=== PATIENT | female | born 1995 | race Caucasian/White ===

== ENCOUNTER 2020-10-06 06:06 | Inpatient (IN) ==
[2020-10-06] MEDS ORDERED: ONDANSETRON 4 MG/2 ML VIAL IV PRN (06:35)
[2020-10-06] MEDS ORDERED: BUTORPHANOL 2 MG/ML VIAL IV PRN (06:35)
[2020-10-06] MEDS ORDERED: MEPERIDINE 50 MG/1 ML VIAL IM PRN (06:35)
[2020-10-06 06:57] LABS: Basophils % 0.3 % (0.0-0.8); Eosinophils # 0.1 10*3/uL (0.0-0.87); Eosinophils % 0.7 % (0.00-10.9); Hematocrit 34.3 VOL% (35.7-47.0); Hemoglobin 11.4 GM/DL (12.0-16.0); Immature Granulocytes % 3.9 %; Lymphocytes # 2.6 10*3/uL (1.4-4.0); Mean Corpuscular HGB Conc 33.2 GM/DL (32-36); Mean Corpuscular Volume 87.3 FL (87-102); Mean Platelet Volume 10.3 FL (9.6-12.0); Monocytes % 8.4 % (1.7-12.7); Neutrophils % 69.7 % (38.7-73.9); Platelet Count 218 T/CUMM (130-400); Red Blood Count 3.93 MC/CUMM (3.8-5.5); Red Cell Distribution Width 14.9 % (9.3-17.3); White Blood Count 15.3 T/CUMM (4-12)
[2020-10-06 07:17] LABS: Band Neutrophils 2 % (0-10); Lymphocytes 15 % (20-55); Platelet Estimate Normal; Segmented Neutrophils 78 % (50-85); Total Cells Counted 100
[2020-10-06 07:35] LABS: Alanine Aminotransferase 18 U/L (13-56); Albumin 2.4 G/DL (3.4-5.0); Alkaline Phosphatase 202 U/L (45-117); Aspartate Amino Transferase 13 U/L (0-37); Bilirubin,Total < 0.39 MG/DL (0.20-1.00); Blood Urea Nitrogen 6 MG/DL (7-18); Calcium 8.8 MG/DL (8.5-10.1); Carbon Dioxide 21 MMOL/L (21-32); Estimated Glom Filtration Rate 176 ML/MIN; Glucose 91 MG/DL (74-106); Osmolality,Calculated 274.5 MOS/KG (273-304); Potassium 3.9 MMOL/L (3.5-5.1); Sodium 139 MMOL/L (136-145); Total Protein 6.8 G/DL (6.4-8.2)
[2020-10-06] MEDS ORDERED: MEPERIDINE 50 MG/1 ML VIAL IV PRN (22:21)
[2020-10-07] MEDS ORDERED: OXYTOCIN/LR 20 UNIT/1,000 ML BAG IV SCH (05:00)
[2020-10-07] MEDS ORDERED: PROMETHAZINE 25 MG/1 ML VIAL IM ONE (09:10)
[2020-10-07] MEDS ORDERED: diphenhydrAMINE 50 MG/1 ML VIAL IV PRN ×2 (09:10)
[2020-10-07] MEDS ORDERED: FAMOTIDINE 20 MG/2 ML VIAL IV ONE (09:10)
[2020-10-07] MEDS ORDERED: hydrOXYzine HCL 25 MG/1 ML VIAL IM PRN (09:10)
[2020-10-07] MEDS ORDERED: CITRIC ACID/SODIUM CITRATE 30 ML UDCUP PO ONE (09:10)
[2020-10-07] MEDS ORDERED: ONDANSETRON 4 MG/2 ML VIAL IV ONE (09:10)
[2020-10-07] MEDS ORDERED: ePHEDrine 50 MG/ML VIAL IV PRN (09:10)
[2020-10-07] MEDS ORDERED: NALOXONE 0.4 MG/ML VIAL IV PRN (09:10)
[2020-10-07] MEDS: LACTATED RINGERS 1,000 ML IV SCH ×3 (09:38→16:05)
[2020-10-07] MEDS: fentaNYL 2 MCG/ROPIV 0.2% EPID 100 ML EPIDURAL SCH ×2 (10:33→19:40)
[2020-10-07 13:06] LABS: Bilirubin,Urine Negative (Negative); Blood, Urine Negative (Negative); Glucose,Urine (UA) Negative (Negative); Ketones,Urine 5 mg/dL (Negative); Mucus,Urine Occasional /LPF (Occasional); Nitrite,Urine Negative (Negative); Protein,Urine Negative; RBC,Urine 1 /HPF (0-4); Squamous Epithelial Cell,Urine Occasional /HPF (0-10); Urine Appearance CLEAR (Clear); Urine Color Yellow (Yellow); Urine Specific Gravity 1.014 (1.001-1.035); Urine Urobilinogen < 2.0 EU/DL (0.2-1.0)
[2020-10-08] MEDS ORDERED: ceFAZolin 2,000 MG/50 ML DUPLEX IV ONE (01:30)
[2020-10-08] MEDS ORDERED: OXYTOCIN/LR 20 UNIT/1,000 ML BAG IV ONE (01:30)
[2020-10-08] MEDS ORDERED: LIDOCAINE MPF 2% /EPI 20 ML VIAL ONE (01:34)
[2020-10-08] MEDS ORDERED: ONDANSETRON 4 MG/2 ML VIAL ONE (01:50)
[2020-10-08 02:51] LABS: Cord Venous Blood PCO2 45.3 MMHG; Cord Venous Blood PO2 28.9
[2020-10-08] MEDS ORDERED: PHENYLEPHRINE 1 MG/10 ML SYRINGE IV ONE (02:55)
[2020-10-08] MEDS: ACETAMINOPHEN 500 MG TABLET PO SCH ×3 (05:10→17:19)
[2020-10-08] MEDS: KETOROLAC 30 MG/1 ML VIAL IV SCH ×3 (05:13→17:19)
[2020-10-08] MEDS ORDERED: HYDROmorphone 2 MG/1 ML VIAL IV PRN (05:47)
[2020-10-08 09:33] LABS: Basophils % 0.1 % (0.0-0.8); Eosinophils % 0.1 % (0.00-10.9)
[2020-10-08 09:38] LABS: Hematocrit 28.4 VOL% (35.7-47.0); Immature Granulocytes % 2.2 %; Immature Granulocytes Absolute 0.49 #; Lymphocytes # 2.1 10*3/uL (1.4-4.0); Lymphocytes % 9.6 % (21.3-54.2); Mean Corpuscular HGB Conc 33.1 GM/DL (32-36); Mean Corpuscular Volume 89.3 FL (87-102); Mean Platelet Volume 10.5 FL (9.6-12.0); Monocytes % 5.9 % (1.7-12.7); Neutrophils % 82.1 % (38.7-73.9); Platelet Count 180 T/CUMM (130-400); Red Blood Count 3.18 MC/CUMM (3.8-5.5); Red Cell Distribution Width 14.9 % (9.3-17.3)
[2020-10-08 09:39] LABS: Hemoglobin 9.4 GM/DL (12.0-16.0); White Blood Count 21.9 T/CUMM (4-12)
[2020-10-08 09:54] LABS: Band Neutrophils 3 % (0-10); Lymphocytes 7 % (20-55); Segmented Neutrophils 89 % (50-85); Total Cells Counted 100
[2020-10-08 09:55] LABS: Hypochromasia Slight; Microcytosis 1+; Platelet Estimate Adequate
[2020-10-08] MEDS: MAGNESIUM HYDROXIDE SUSP 30 ML UDCUP PO PRN (13:20)
[2020-10-08] MEDS: DOCUSATE SODIUM 100 MG CAPSULE PO SCH (20:59)
[2020-10-08] MEDS: oxyCODONE/ACETAMINOPHEN 5-325 MG TABLET PO PRN (21:02)
[2020-10-08] MEDS ORDERED: KETOROLAC 30 MG/1 ML VIAL IM ONE (22:25)
[2020-10-09] MEDS: oxyCODONE/ACETAMINOPHEN 5-325 MG TABLET PO PRN ×5 (04:14→23:47)
[2020-10-09 06:04] LABS: Basophils % 0.2 % (0.0-0.8); Eosinophils # 0.1 10*3/uL (0.0-0.87); Eosinophils % 0.4 % (0.00-10.9); Hematocrit 26.7 VOL% (35.7-47.0); Hemoglobin 8.7 GM/DL (12.0-16.0); Immature Granulocytes % 2.2 %; Immature Granulocytes Absolute 0.43 #; Lymphocytes # 2.1 10*3/uL (1.4-4.0); Lymphocytes % 11.1 % (21.3-54.2); Mean Corpuscular HGB Conc 32.6 GM/DL (32-36); Mean Corpuscular Volume 89.9 FL (87-102); Mean Platelet Volume 10.5 FL (9.6-12.0); Neutrophils % 79.1 % (38.7-73.9); Platelet Count 171 T/CUMM (130-400); Red Blood Count 2.97 MC/CUMM (3.8-5.5); Red Cell Distribution Width 15.2 % (9.3-17.3); White Blood Count 19.2 T/CUMM (4-12)
[2020-10-09] MEDS: MULTIVITAMIN (PRENATAL) TABLET PO SCH (08:07)
[2020-10-09] MEDS: MAGNESIUM HYDROXIDE SUSP 30 ML UDCUP PO PRN ×2 (08:07→20:35)
[2020-10-09] MEDS: FERROUS SULFATE 325 MG TABLET PO SCH ×2 (08:07→20:35)
[2020-10-09] MEDS: DOCUSATE SODIUM 100 MG CAPSULE PO SCH ×2 (08:07→20:35)
[2020-10-09] MEDS: IBUPROFEN 800 MG TABLET PO PRN ×3 (08:07→20:35)
[2020-10-09] MEDS ORDERED: SIMETHICONE CHEW 80 MG TABLET PO PRN (09:17)
[2020-10-10] MEDS: oxyCODONE/ACETAMINOPHEN 5-325 MG TABLET PO PRN ×3 (05:12→23:06)
[2020-10-10] MEDS: MULTIVITAMIN (PRENATAL) TABLET PO SCH (09:21)
[2020-10-10] MEDS: DOCUSATE SODIUM 100 MG CAPSULE PO SCH ×2 (09:21→21:21)
[2020-10-10] MEDS: FERROUS SULFATE 325 MG TABLET PO SCH ×2 (09:22→20:24)
[2020-10-10] MEDS: IBUPROFEN 800 MG TABLET PO PRN ×3 (09:23→23:06)
[2020-10-10] MEDS: MAGNESIUM HYDROXIDE SUSP 30 ML UDCUP PO PRN (09:24)
[2020-10-11] MEDS: FERROUS SULFATE 325 MG TABLET PO SCH ×2 (07:44→09:00)
[2020-10-11] MEDS: MULTIVITAMIN (PRENATAL) TABLET PO SCH ×2 (07:44→09:00)
[2020-10-11] MEDS: oxyCODONE/ACETAMINOPHEN 5-325 MG TABLET PO PRN (07:45)
[2020-10-11 08:40] VITALS: BP 140/82
[2020-10-11] MEDS: DOCUSATE SODIUM 100 MG CAPSULE PO SCH (08:53)
[2020-10-11] MEDS: IBUPROFEN 800 MG TABLET PO PRN (09:53)
== END 2020-10-11 16:30 | disposition home or self-care (01) | DRG 788 ==
LOC: N.LD 06:06 → N.OB 10-08 08:12
PROVIDERS: ADMIT Obstetrics & Gynecology; ATTEND Obstetrics & Gynecology
PROC: LDCSECT (ICD-10-PCS; 2020-10-08 01:50)